=== PATIENT | female | born 1935 | race Caucasian/White ===

== ENCOUNTER 2021-10-25 17:39 | Emergency (ER) | payer MEDICARE ==
[~2021-10-25] VITALS: Ht 170.2 cm; Wt 59.0 kg
[2021-10-25] MEDS ORDERED: TETANUS-DIPTH-ACEL PERTUSSIS 0.5ML SYR Tdap IM ONE (18:45)
[2021-10-25] MEDS ORDERED: LIDOCAINE 1% HCL (LOCAL ANESTH.) INJ 20ML MDV IJ ONE (18:45)
[2021-10-25 19:35] VITALS: BP 157/97
[2021-10-25] MEDS ORDERED: CEPH-509 PO (19:59)
== END 2021-10-25 20:18 | disposition home or self-care (01) ==
LOC: ER 17:39
DX: S51.812A Laceration without foreign body of left forearm, initial encounter (principal); W08.XXXA Fall from other furniture, initial encounter; Y93.89 Activity, other specified; Y92.89 Other specified places as the place of occurrence of the external cause; Y99.8 Other external cause status
CPT/HCPCS: 12005; 90471; 90715; 99283; J2001

== ENCOUNTER 2021-10-27 09:23 | Emergency (ER) | payer MEDICARE ==
[~2021-10-27] VITALS: Ht 170.2 cm; Wt 59.0 kg
[~2021-10-27 09:23] MED LIST: CEPH-509 PO
[2021-10-27 11:04] VITALS: BP 122/86
[2021-10-27] MEDS ORDERED: BACITRACIN TOP OINT 1 UD PKG TOP ONE (11:15)
== END 2021-10-27 11:26 | disposition home or self-care (01) ==
LOC: ER 09:23
DX: S51.812D Laceration without foreign body of left forearm, subsequent encounter (principal); X58.XXXD Exposure to other specified factors, subsequent encounter

== ENCOUNTER 2021-11-03 20:28 | Emergency (ER) | payer MEDICARE ==
[~2021-11-03] VITALS: Ht 170.2 cm; Wt 59.0 kg
[2021-11-04] MEDS ORDERED: AMOX500T86 PO (04:08)
[2021-11-04] MEDS ORDERED: cefTRIAXone SOD 1,000 MG VL IM ONE (04:15)
[2021-11-04 04:58] VITALS: BP 154/86
== END 2021-11-04 05:04 | disposition home or self-care (01) ==
LOC: ER 20:28
DX: T81.30XA Disruption of wound, unspecified, initial encounter (principal); I10 Essential (primary) hypertension; S51.812D Laceration without foreign body of left forearm, subsequent encounter
CPT/HCPCS: 96372; 99283; J0696

== ENCOUNTER 2021-11-12 09:50 | Emergency (ER) | payer MEDICARE ==
[~2021-11-12] VITALS: Ht 170.2 cm; Wt 59.0 kg
[~2021-11-12 09:50] MED LIST changes: +AMOX500T86 PO
[2021-11-12 13:30] VITALS: BP 112/67
[2021-11-12] MEDS ORDERED: BACIOIN15 OP (13:32)
[2021-11-12] MEDS ORDERED: CLIN300C8 PO (14:01)
[2021-11-12] MEDS ORDERED: BACITRACIN TOP OINT 1 UD PKG TOP ONE (14:15)
== END 2021-11-12 14:19 | disposition home or self-care (01) ==
LOC: ER 09:50
DX: S51.812D Laceration without foreign body of left forearm, subsequent encounter (principal); T81.30XA Disruption of wound, unspecified, initial encounter; X58.XXXD Exposure to other specified factors, subsequent encounter